=== PATIENT | female | born 1995 | race Caucasian/White ===

== ENCOUNTER 2017-05-21 16:45 | Emergency (ER) | payer BC ==
[2017-05-21 16:55] VITALS: BMI 29.2
--- NOTE | 2017-05-21 17:25 | RAD ---
HISTORY: Laceration 5th digit Study: Right hand AP, lateral, oblique Comparison: None Findings: No acute cortical disruption or dislocation is identified. The soft tissues appear unremarkable. Th e carpal bones appear aligned without evidence for fracture. The joints are normal. The 5th digit clotilde ears intact. No radiopaque foreign bodies are identified in the soft tissues. IMPRESSION: 1. Negative exam. Reported By:
[2017-05-21 17:44] VITALS: BP 137/84
[2017-05-21] MEDS ORDERED: BACTROBAN OINT TOP ONE (18:01)
[2017-05-21] MEDS ORDERED: TORADOL 30 MG VIAL ONE (18:02)
[2017-05-21] MEDS ORDERED: BACITRACIN ZINC ONE (18:02)
[2017-05-21] MEDS ORDERED: TORADOL 30 MG VIAL IVP STA (18:02)
--- NOTE | 2017-05-21 18:05 | DR.GENAD ---
HPI - PCP Primary Care Physician: SUBHA - Complaint/Symptoms Chief Complaint Doctors Comments: Patient states she was cutting cucumbers and sliced her right 5th finger with the knife with pain and bleeding from her finger.. Patient states she had a tetanus about a month ago because she started back to school. Patient states that her periods has been regular and she is not . states the pain is 1 of 10. She denies any other trauma. Chief Complaint:: PT C/O LACERATION TO 5TH DIGIT TO RT HAND. PT STAES SHE WAS CUTTING SOME CUCUMBERS AND SLID HER FINGER OVER THE KNIFE. - Nurses notes reviewed Nurses Notes Review: Yes - Source History Provided: Patient - Mode of Arrival Mode of Arrival: Ambulatory - Timing Onset of Chief Complaint: 05/21/17 Came on: Suddenly - Duration Duration: Constant How lon Duration: Hours - Location Location: laceration right 5th finger - Severity Severity: Mild - Modifying Factors Worsens:: movement Improves:: nothing PMH - PMH Past Medical History: No Past Surgical History: No - Family History History of Family Medical Conditions: No - Social History Does any household member use tobacco: No Alcohol Use: None Do you use any recreational Drugs:: No Lives With: Family Lives Where: Home - infectious screening In the last 2 months have you had wt loss of >10#?: NO Have you had fever, night sweats or hemotysis?: No Have you traveled outside the country in the last 6 months?: No Isolation: Standard ROS - Review of Systems Constitutional: No Symptoms Reported Eyes: No Symptoms Reported ENTM: No Symptoms Reported Respiratoy: No Symptoms Reported. negative: See HPI, Productive Cough, Non- Productive Cough, Moist Cough, Dry Cough, Hacking Cough, Barking Cough, Brassy Cough, Orthopnea, Short of Breath, Stridor, Wheezing, Hemoptysis, Other Cardiovascular: No Symptoms Reported Gastrointestinal/Abdominal: No Symptoms Reported Genitourinary: No Symptoms Reported Neurological: No Symptoms Reported Musculoskeletal: No Symptoms Reported Integumentary: No Symptoms Reported, Wound (right 5th finger DIP joint) Hematologic/Lymphatic: No Symptoms Reported. negative: See HPI, Anemia, Blood Clots, Easy Bleeding, Easy Bruising, Swollen Glands, Lymphadenopathy, Other PE - Vital Signs Vitals: Temperature 98.6 F Pulse Rate 72 Respiratory Rate 20 Blood Pressure 137/84 O2 Sat by Pulse Oximetry 100 - General Limitations: No Limitations General Appearance: Alert, In Distress (mod) - Head Head Exam: Normal Inspection, Atraumatic, Normocephalic - Eyes Eye exam: Normal Appearance, PERRL, EOMI. negative: Scleral Icterus, Conjunctival Injection, Nystagmus, Miosis, Mydrasis, Periorbital Swelling, Periorbital Tenderness, Other - ENT ENT Exam: Normal Exam, Normal Oropharynx, Normal External Ear Exam, Mucous Membranes Moist, TM's Normal Bilaterally External Ear Exam: Normal External Inspection TM/Canal Exam: Bilateral Normal Nose Exam: Normal Nose Exam Mouth Exam: Normal Inspection Throat Exam: Normal Inspection - Neck Neck Exam: Normal Inspection, Full ROM, Trachea Midline - Chest Chest Inspection: Normal Inspection, Symmetric Chest Wall Rise - Respiratory Respiratory Exam: Normal Lung Sounds Bilat Respiratory Exam: Bilateral Clear to Auscultation - Cardiovascular Cardiovascular Exam: Regular Rate, Normal Rhythm, Normal Heart Sounds - Abdominal Exam Abdominal Exam: Normal Inspection, Normal Bowel Sounds, Soft Abdominal Tenderness: negative: RUQ, RLQ, LUQ, LLQ, Epigastrium, Suprapubic, Diffuse, Mild, Moderate, Severe, Other - Extremities Extremities Exam: Normal Inspection, Full ROM, Tenderness (right 5th finger with 1cm ellipical laceration with bleeding; ), Normal Capillary Refill - Back Back Exam: Normal Inspection, Full ROM. negative: Tenderness, (R) CVA Tenderness, (L) CVA Tenderness, Muscle Spasm, Paraspinal Tenderness, Vertebral Tenderness, Rashes, (R) Sciatic Notch Tenderness, (L) Sciatic Notch Tendern, (R ) Straight Leg Raise, (L) Straight Leg Raise, Other - Neurologic Neurological Exam: Alert, Oriented X3, CN II-XII Intact, Normal Gait, Reflexes Normal - Psychiatric Psychiatric Exam: Normal Affect, Normal Mood - Skin Skin Exam: Warm, Dry, Intact, Normal Color - Diagnosis Discharge Problem: laceration right 5th finger Contusion of right hand Qualifiers: Encounter type: initial encounter Qualified Code(s): S60.221A - Contusion of right hand, initial encounter - Discharge Plan Disposition: HOME, SELF-CARE Condition: Stable Prescriptions: Cephalexin [KEFLEX CAP 500 MG *] 500 mg PO TID #30 cap Ibuprofen [MOTRIN TAB 800 MG *] 800 mg PO Q8H PRN #30 tab PRN Reason: Pain/Inflammation Mupirocin Oint [BACTROBAN OINT 2%] 1 applic EXT BID #22 gm - Follow ups/Referrals Follow ups/Referrals: BRITANY MASCORRO [Primary Care Provider] - 3 days ARIE VALDEZ [STAFF PHYSICIAN] - 3 days - Instructions Instructions: Laceration Care, Adult, [id number], Deep Skin Avulsion
== END 2017-05-21 18:27 | disposition home or self-care (01) ==
LOC: ER 16:51
DX: S61.216A Laceration without foreign body of right little finger without damage to nail, initial encounter (principal); S60.221A Contusion of right hand, initial encounter; W26.0XXA Contact with knife, initial encounter; Y92.9 Unspecified place or not applicable
CPT/HCPCS: 73130; 96372; 99282; J1885